=== PATIENT | male | born 1940 | race Caucasian/White ===

== ENCOUNTER → 2021-04-22 | Outpatient (CLI) | payer MEDICARE, OTHER ==
--- NOTE | 2021-04-22 19:02 | MR ---
EXAMINATION TYPE: MR brain wo con DATE OF EXAM: 04/22/2021 COMPARISON: NONE HISTORY: TIA, dizziness, narcolepsy TECHNIQUE: T1-weighted sagittal, T2, FLAIR, and diffusion axial, and T2 coronal coronal views of the brain are submitted. FINDINGS: Exam limited by motion artifact. There is no evidence of acute ischemia. The ventricles, basal cisterns, and sulci demonstrate modera te to severe generalized degenerative change of the greater central component. There is mild confluen t as well as numerous focal scattered areas of abnormal signal seen throughout the white matter bilat erally. Focal area of abnormal signal involving the adalberto on the left suggestive of remote ischemia. Craniocervical junction maintained. Sella turcica has a normal appearance. No cerebellopontine angle mass. The globes are symmetric. Changes of mild chronic sinusitis. IMPRESSION: 1. No acute intracranial process. There is degenerative and nonspecific white matter changes most typ ical remote ischemia. Greater central component to the ventricular dilation can be associated with no rmal pressure hydrocephalus correlate clinically. 2. Focal subcentimeter left pontine area of remote ischemia. 3. Chronic sinusitis.
== END | disposition home or self-care (01) ==
LOC: RADMRIMAIN 09:27
PROVIDERS: ATTEND Psychiatry & Neurology Neurology
DX: G45.9 Transient cerebral ischemic attack, unspecified (principal); J32.8 Other chronic sinusitis
CPT/HCPCS: 70551